=== PATIENT | male | born 2000 | race Caucasian/White ===

== ENCOUNTER 2018-03-25 00:30 | Emergency (ER) | payer MEDICAID, OTHER ==
[2018-03-25] MEDS: LIDOCAINE/MYLANTA 40 ML BTL PO (03:46)
[2018-03-25] MEDS: ONDANSETRON (ODT) 4 MG TAB ODT (03:46)
== END 2018-03-25 04:14 | disposition home or self-care (01) ==
LOC: E/R 00:30
DX: R10.13 Epigastric pain (principal); R11.0 Nausea
CPT/HCPCS: 99283; Z7502